=== PATIENT | male | born 1950 | race Caucasian/White ===

== ENCOUNTER 2020-03-11 05:16 | Inpatient (IN) | payer MEDICARE, SELFPAY ==
[2020-03-11] VITALS (12 sets, daily range): BP systolic 134–177; BP diastolic 82–116; PULSE 69–94; RESP 18–20; TEMP 36.4–36.7; O2SAT 96–97; BMI 39.9; BMI 40.6; BMI 40.7
--- NOTE | 2020-03-11 05:18 | EKG12_ITS ---
Test Reason : SOB Blood Pressure : / mmHG Vent. Rate : 092 BPM Atrial Rate : 234 BPM P-R Int : 000 ms QRS Dur : 094 ms QT Int : 388 ms P-R-T Axes : 000 -11 063 degrees QTc Int : 479 ms Atrial fibrillation with premature ventricular or aberrantly conducted complexes Nonspecific T wave abnormality Prolonged QT Abnormal ECG Confirmed by JAYNE LEROY, NELI ([id number]), video tape editor ISRAEL GOMEZ ([id number]) on 03/14/2020 2:46:30 PM Referred By: ANTONIO Confirmed By:DENNIS GODOY MD
--- NOTE | 2020-03-11 05:18 | ED.DCSUM_ITS ---
History of Present Illness Chief Complaint: Anxiety Informant: Patient Onset: Days Context: Gradual Onset Timing: Intermittent Current Severity: Moderate Maximum Severity: Moderate Narrative: The patient is a 69-year-old male with no significant medical history that presents to the emergency department shortness of breath, bilateral shoulder pain, neck pain. Patient states for the past 2 weeks, he has been having these intermittent symptoms. He states that he thought it was secondary to anxiety. He states him time to time, it will feel like he cannot catch his breath. He states tonight, he had tightness in both shoulders and into the back of his neck. He felt mildly nauseated. He did not have any specific chest pain. The patient only takes Tylenol daily as needed. He does not smoke. He denies any history of coronary vascular disease. He states that he talked to his doctor about this earlier in the week who thought that it may be a component of anx iety. He states that he does exert himself, it does seem to make the symptoms worse. Prior similar symptoms: No Recent Illness/Hospitalization: No Past Medical History - Allergies and Home Meds Allergies/Adverse Reactions: Allergies No Known Allergies Allergy (Verified 03/11/20 05:33) Primary Care Physician: Moises Jordan DO [Primary Care Provider] - Prior records reviewed: Yes Past Medical History: None Surgical History: noncontributory Review of Systems General: Denies: Chills, Fever, Sweats Eyes: Denies: Visual changes - bilaterally, Diplopia ENT: Denies: Rhinorrhea, Sore throat Cardiovascular: Reports: Heart racing. Denies: Chest pain, Palpitations Respiratory: Reports: Dyspnea, Dyspnea on exertion. Denies: Cough Gastrointestinal: Denies: Abdominal pain, Nausea, Vomiting, Diarrhea, Melena, Hematochezia Genitourinary: Denies: Dysuria, Hematuria, Frequency Musculoskeletal: Denies: Back pain, Extremity Pain Skin: Denies: Rash, Wounds Neurological: Denies: Headache, Weakness, Numbness Physical Exam Inital Vital Signs reviewed: Yes General: Well nourished, Well developed, No Acute Distress Head: Normocephalic, Atraumatic Eyes: Perrl, EOMI ENT: Moist mucous membranes, No rhinorrhea Neck: Supple, Nontender Cardiovascular: Regular rate, Regular rhythm, No murmurs Respiratory: No distress, CTA bilaterally, Chest nontender Abdomen: Soft, Nontender, Nondistended, Normal bowel sounds Back: Nontender, Normal Inspection Extremities: Nontender, No edema Skin: Normal color, No rash Neurological: Alert, Oriented x3, Cranial nerves II-XII grossly intact, Normal Strength, Normal Sensation Psychological: Normal affect, Normal Mood Diagnostic/Tx/Re-eval Abnormal Lab Results 03/11/20 03/11/20 03/11/20 05:20 05:20 05:20 WBC 6.4 RBC 4.76 Hgb 15.1 Hct 44.1 MCV 92.6 MCH 31.7 MCHC 34.2 RDW Std Deviation 45.0 H RDW Coeff of Bobby 13.2 Plt Count 163 MPV 10.7 Immature Gran % (Auto) 0.200 Neut % (Auto) 46.9 L Lymph % (Auto) 39.5 Chambers % (Auto) 9.7 Eos % (Auto) 3.1 Baso % (Auto) 0.6 Absolute Neuts (auto) 3.0 Absolute Lymphs (auto) 2.52 Nucleated RBC % 0 Sodium 136 Potassium 4.0 Chloride 104 Carbon Dioxide 26.0 Anion Gap 6 BUN 20 H Creatinine 1.17 Estim Creat Clear Calc 59.59 Est GFR (MDRD) Af Amer 79 Est GFR (MDRD) Non-Af 66 BUN/Creatinine Ratio 17.1 Glucose 97 Calcium 8.4 L Magnesium 2.4 Troponin I < 0.015 B-Natriuretic Peptide 333.8 H - Rhythm Strip Rhythm Strip: A-fib Rate: 90 Ectopy: PVC(s) - EKG Initial EKG Interpretation: Atrial Flutter Prior: Changed - Medical Decision Making The patient presents to the emergency department with shortness of breath. There is an exertional component. He also does have some complaints of orthopnea. He has some crackles in his lung bases and mild edema in his lower extremities. EKG was obtained on arrival. It was read as A. fib, however does appear to be atrial flutter with intermittent conduction. Screening labs including cardiac enzymes were negative. Chest x-ray does show enlarged cardiac silhouette with cephalization and evidence of volume overload. The patient has no history of dysrhythmia and now appears to be in congestive heart failure. I do feel that he would benefit from admission for diuresis and an echo. The patient was discussed with cardiology and with the hospitalist. Impression 1. Atrial flutter 2. New onset congestive heart failure ED Disposition - Plan for ED Patient: Referrals: Moises Jordan DO [Primary Care Provider] -
[2020-03-11] MEDS: Aspirin 81 MG TAB.CHEW 324 MG PO (05:29)
[2020-03-11 05:30] LABS: Absolute Lymphocyte Count 2.52 X10^3/uL (0.83-4.51); Basophil# 0.04 X10^3/uL; Basophil% 0.6 % (0-1); Eosinophils% 3.1 % (0-5); Hematocrit 44.1 % (40-54); Hemoglobin 15.1 g/dL (13.0-16.5); Lymphocyte # 2.52 X10^3/ul (4.0); Lymphocyte % 39.5 % (19-41); Mean Corp Hgb Conc 34.2 g/dL (32-36); Mean Corpuscular Hgb 31.7 pg (27.0-32.0); Mean Corpuscular Volume 92.6 fL (80-94); Mean Platelet Vol. 10.7 fl (6.2-12.0); Monocyte# 0.62 X10^3/uL; Monocyte% 9.7 % (0-10); NRBC Flagged by Analyzer 0 % (0-5); Neutrophil # 2.99 X10^3/uL (2.7-7.7); Neutrophil % 46.9 % (47-70); Platelet Count 163 K/mm3 (150-450); RBC Distribution Width CV 13.2 % (11.6-14.6); Red Blood Count 4.76 M/mm3 (4.6-6.2); White Blood Count 6.4 K/mm3 (4.4-11.0)
--- NOTE | 2020-03-11 05:45 | RAD_ITS ---
STUDY: X-RAY CHEST REASON FOR EXAM: Male, 69 years old. SOB X 3 DAYS. CHEST PAIN AND ANXIETY AND RAPID HEART RATE X 2 HRS. PT ALSO STATES PAIN IN BOTH SHOULDERS AND THROUGHOUT NECK. TECHNIQUE: Single AP portable view of the chest. COMPARISON: None. FINDINGS: There is no focal parenchymal abnormality. There is no demonstrated pleural abnormality. There is mild cardiac enlargement. There is vascular prominence. Normal mediastinum and mann. Normal visualized aortic arch and descending thoracic aorta. There are diffuse degenerative changes of the visualized thoracic spine. There is degenerative osteoarthritis of the bilateral shoulders. Obscured soft tissue structures of the upper abdomen. RAD/Chest 1 View (Portable) IMPRESSION: Cardiomegaly. Mild vascular congestion. No focal pneumonia detected. Electronically Signed: Sandra Fuller MD at 7:09 EDT , Service support ,
[2020-03-11 05:47] LABS: Anion Gap 6 (5-15); BNP,B-Type NATRIURETIC PEPTIDE 333.8 pg/mL (0-100); BUN 20 mg/dL (7-18); BUN/Creat Ratio 17.1 RATIO (10-20); Calcium,Total 8.4 mg/dL (8.5-10.1); Chloride 104 mmol/L (98-107); Creatinine, Serum 1.17 mg/dL (0.70-1.30); EST Glomerular Filtration Rate 66 mL/min (>60); Est Glom Filt Rate - Afr Amer 79 mL/min (>60); Estimated Creatinine Clearance 59.59 ml/min; Glucose 97 mg/dL (74-106); Magnesium 2.4 mg/dL (1.6-2.6); Sodium Level 136 mmol/L (136-145)
--- NOTE | 2020-03-11 06:08 | PCM.HP.STD ---
Problem List (1) Heart failure Status: Acute (2) Atrial flutter Status: Acute History of Present Illness Date of Admission: 03/11/20 Chief Complaint: Shortness of breath The patient is a 69 year old M with a significant history of neuropathy; bilateral leg edema; spinal stenosis status post back surgery who presents emergency department with a two-week history of persistent shortness of breath. Associated with symptoms is paroxysmal nocturnal dyspnea, orthopnea and insomnia. Further patient has a palpitations. He called his PCP a day before his presentation. His PCP thought that this may be anxiety. His PCP instructed him that if his symptoms does not go away he should come to the emergency department. On the day of presentation patient had a bilateral shoulder tightness and neck pain that put him to the edge of coming to the emergency department. Reportedly he has been taking acetaminophen and ibuprofen for chronic back pain and for bilateral neuropathy in his legs. On the day of presentation he took acetaminophen and ibuprofen for this new shoulder and neck pain. At emergency department he denied any shoulder or neck pain. He reports a chronic bilateral leg edema which is worse in his left leg done in his right leg. His bilateral lower extremity edema has not changed. Typically he wears a ELAINA hose for his bilateral leg edema. He denies any weight gain within the last 6 months. Past Medical History Medical History: Medical History (Last Updated 03/11/20 @ 07:[address] Wil Donaldson MD) Back pain M54.9 Allergies No Known Allergies Allergy (Verified 03/11/20 05:33) Home Medications: Ambulatory Orders Medication Instructions Recorded Acetaminophen [Tylenol] 650 mg PO DAILY 03/11/20 Ascorbic Acid [Vitamin C] PO DAILY 03/11/20 Beta-Carotene [Beta Carotene] unit PO DAILY 03/11/20 Ergocalciferol [Vitamin D] 5,000 unit PO DAILY 03/11/20 Ibuprofen [Advil] 800 mg PO DAILY 03/11/20 Surgical History: herniorrhaphy, - - Back surgery Smoking Status: Never smoker Alcohol: Occasional - *Family History Maternal History Items: Cancer - His mother had breast cancer Paternal History Items: - - His father is age 93 and is still alive. Review of Systems Constitutional: Denies: Chills, Fever, Weight Change HEENT: Denies: Head Aches, Sinus Congestion, Sinus Drainage Cardiovascular: Reports: Edema, Orthopnea, Palpitations, Paroxysmal Noc. Dyspnea. Denies: Chest Pain Respiratory: Reports: Shortness of breath at rest. Denies: Cough, Sputum production Gastrointestinal: Denies: Abdominal Pain, Nausea, Vomiting Genitourinary: Denies: Dysuria Musculoskeletal: Denies: Joint Pain, Joint Tenderness Skin: Denies: Rash, Wounds Neurological: Denies: Numbness, Tingling, Focal weakness Psychiatric: Reports: Anxiety. Denies: Depression, Homicidal Ideations, Suicidal Ideations Hematologic/ Lymphatic: Denies: Easy Bruising, Easy Bleeding VTE Information - Inpt Only VTE Present on Admission: No VTE Mechan Device Prophylaxis: None VTE Pharm Prophylaxis ordered?: No Reason prophylaxis not ordered:: Treatment Not Indicated - Started on Eliquis for A. fib Patient Problems: Active and Suspected Problems (Last Updated 03/11/20 @ 07:[address] Wil Donaldson MD) Heart failure (Acute) Atrial flutter (Acute) - Physical Exam Vitals/I&O's: Vital Signs Temp Pulse Resp BP Pulse Ox 98.0 F 83 18 171/116 H 97 03/11/20 05:17 03/11/20 05:38 03/11/20 05:38 03/11/20 05:38 03/11/20 05:17 Oxygen Delivery Method Room Air Weight: 122.47 kg Body Mass Index (BMI) 39.9 General: Alert, Oriented x3, Cooperative HEENT: Atraumatic, PERRLA, EOMI, Normocephalic Neck: Supple, No JVD, Negative Carotid Bruits Lungs: Clear to auscultation, Normal air movement Cardiovascular: Normal S1, Normal S2, No murmurs, Irregular Rate Abdomen: Bowel Sounds Present, Soft, Non Tender Extremities: Capillary Refill Less than 3 Seconds, Edema - Mild, bilateral feet Skin: No rashes, No breakdown Musculoskeletal: No Tenderness to Palpation of Joints or Extremities Neurological: Cranial nerves II-XII grossly intact Psych/Mental Status: Normal Affect, Appropriate Laboratory Results 03/11/20 05:20: WBC 6.4, RBC 4.76, Hgb 15.1, Hct 44.1, MCV 92.6, MCH 31.7, MCHC 34.2, RDW Std Deviation 45.0 H, RDW Coeff of Bobby 13.2, Plt Count 163, MPV 10.7, Immature Gran % (Auto) 0.200, Neut % (Auto) 46.9 L, Lymph % (Auto) 39.5, [place] % (Auto) 9.7, Eos % (Auto) 3.1, Baso % (Auto) 0.6, Absolute Neuts (auto) 3.0, Absolute Lymphs (auto) 2.52, Nucleated RBC % 0 03/11/20 05:20: Sodium 136, Potassium 4.0, Chloride 104, Carbon Dioxide 26.0, Anion Gap 6, BUN 20 H, Creatinine 1.17, Estim Creat Clear Calc 59.59, Est GFR (MDRD) Af Amer 79, Est GFR (MDRD) Non-Af 66, BUN/Creatinine Ratio 17.1, Glucose 97, Calcium 8.4 L, Magnesium 2.4, Troponin I < 0.015 03/11/20 05:20: B-Natriuretic Peptide 333.8 H Assessment/Plan All Active Problems (Last Updated 03/11/20 @ 07:[address] Wil Donaldson MD) Heart failure (Acute) Atrial flutter (Acute) The patient is a 69 year old M with a significant history of neuropathy; bilateral leg edema; spinal stenosis status post back surgery who presents emergency department with a two-week history of persistent shortness of breath; paroxysmal nocturnal dyspnea, orthopnea and insomnia. Atrial flutter EKG showed rate controlled atrial flutter. Place on PCU on telemetry Serial cardiac enzymes Obtain echo Emergent department doctor discussed the case with branch sales and service representative telephone messenger and Eliquis was recommended. Eliquis ordered at emergency department and continued. Rate is controlled so no rate control medication prescribed. Of note patient has likely heart failure so no rate control medication at this time. Potassium and magnesium are normal. Chest x-ray Consult cardiology. New onset exacerbation of heart failure Review of emergency department labs showed elevated BNP, 333.8 which is relevant in this patient with BMI of 39.9.. Place on monitored bed on PCU Weight on admission to the floor; and then daily Strict I&O's CXR independently reviewed showed increase cardiac silhouette with cephalization. Received Lasix 40 mg IV at emergency department and continued. Potassium supplementation ordered. Echo ordered to evaluate LVEF and wall motion Monitor electrolytes and renal function Trend blood pressure Titrate diuretics and heart failure/blood pressure medications with blood pressure. Discussed emergent department doctor to give patient lisinopril. Lisinopril continued. Fluid restriction of 1500 mls daily 2 g cardiac diet Chronic back pain/leg pain Acetaminophen continued. Hold home NSAIDs. DVT prophylaxis: Not indicated since patient has been started on Eliquis for A-flutter Inpatient E&M: 22576 Init Hosp L3
[2020-03-11] MEDS: Furosemide 40 MG/4 ML Vial IV (06:28)
[2020-03-11] MEDS: APIXABAN 5 MG TABLET PO ×2 (06:33→16:54)
[2020-03-11] MEDS: Lisinopril 20 MG Tablet PO ×2 (07:02→09:11)
--- NOTE | 2020-03-11 07:49 | ECHOCS_ITS ---
Reason For Study: Afib, Aflutter Procedure This was a 2D Doppler, Color Flow transthoracic echocardiogram. Contrast injection was performed. Exam performed in department. Left Ventricle Normal LV size. The estimated ejection fraction is 50-55 %. Unable to assess diastolic dysfunction. No regional wall motion abnormalities noted. Right Ventricle Normal RV size. Normal systolic function. Atria The left atrium is mildly enlarged. Normal right atrium. No doppler evidence for ASD. Mitral Valve There is mild mitral annular calcification. There is no mitral valve stenosis. Mild (1+) mitral valve insufficiency. Tricuspid Valve There is no tricuspid stenosis. Trivial tricuspid valve insufficiency. Pulmonary artery systolic pressure is 30 mmHg. Aortic Valve Moderate diffuse aortic valve thickening. Moderate aortic stenosis. Moderate (2+) aortic valve insufficiency. Pulmonic Valve There is no pulmonic valvular stenosis. No pulmonic valve insufficiency. Great Vessels Normal aortic root. Pericardium/Pleural No pericardial effusion. Medication Diluted definity 2ml given slow IV push to enhance endocardial definition. MMode/2D Measurements & Calculations LVIDd: 5.6 cm IVSd: 1.2 cm LVOT diam: 2.5 cm LVIDs: 3.9 cm LVPWd: 1.0 cm RVDd: 4.0 cm FS: 30.1 % LVOT area: 4.7 cm2 Ao root diam: 3.2 cm LAV(MOD-bp): 70.7 ml LA A4 area: 24.1 cm2 LAV(MOD-bp) Indexed: 30.1 ml/m2 LAV(MOD-sp2): 69.3 ml LAV(MOD-sp4): 70.4 ml LA dimension(2D): 5.2 cm RA A4 area: 21.4 cm2 Doppler Measurements & Calculations MV E max licha: 65.0 cm/sec Ao V2 max: 293.4 cm/sec AI max licha: 394.7 cm/sec Ao max P.6 mmHg AI max P.9 mmHg Ao V2 mean: 223.1 cm/sec AI dec slope: 185.0 cm/sec2 Ao mean P.5 mmHg AI P1/2t: 624.8 msec Ao V2 VTI: 63.6 cm ALEJANDRO(I,D): 1.6 cm2 ALEJANDRO(V,D): 1.5 cm2 LV V1 max: 94.5 cm/sec SV(LVOT): 103.1 ml PA V2 max: 62.7 cm/sec LV V1 max P.6 mmHg LV V1 mean P.1 mmHg LV V1 mean: 69.7 cm/sec LV V1 VTI: 21.8 cm PI end-d licha: 138.0 cm/sec TR max licha: 260.5 cm/sec TR max P.1 mmHg Interpretation Summary The estimated ejection fraction is 50-55 %. Unable to assess diastolic dysfunction. The left atrium is mildly enlarged. Mild (1+) mitral valve insufficiency. Moderate aortic stenosis. Moderate (2+) aortic valve insufficiency. The study was technically difficult. Contrast injection was performed. Ordering Physician: Wil Donaldson Referring Physician: Moises Jordan Performed By: Christina Porras RDCS, RVT
[2020-03-11 08:32] LABS: Thyroid Stim Hormone (TSH) 4.11 uIU/mL (0.358-3.74)
[2020-03-11] MEDS: 0.9% Saline Lock 10 ML Syringe IV (09:11)
--- NOTE | 2020-03-11 11:16 | CASEMGMT ---
This RN CM to room to complete CM assessment and pt is currrently in the shower. Will attempt again later. SStaten RN CM
--- NOTE | 2020-03-11 12:19 | CON.PCM_ITS ---
Reason for Consult Date of Consultation: 03/11/20 Reason for Consultation: SOB, A fib History of Present Illness: The patient is a 69 year old M with a significant history of neuropathy; bilateral leg edema; spinal stenosis status post back surgery who presents emergency department with a two-week history of persistent shortness of breath. Associated with symptoms is paroxysmal nocturnal dyspnea, orthopnea and insomnia. This morning patient woke up with bilateral shoulder pain and neck pain. There was no clear aggravating or relieving factors. By the time he came to the emergency room the pain had resolved. However because of the shoulder pain he decided to come to the emergency room. Patient states that he has been feeling anxious over the last few days and was wondering if his symptoms could be related to that. He reports a chronic bilateral leg edema which is worse in his left leg done in his right leg. His bilateral lower extremity edema has not changed. Typically he wears a ELAINA hose for his bilateral leg edema. He denies any weight gain within the last 6 months. The emergency room patient was found to have A. fib with controlled ventricular response. This is a new diagnosis for him. Patient's TSH was slightly elevated. 2 sets of troponin have been negative. Review of systems: All systems reviewed. All else is negative except that in the HPI Past Medical History Allergies/Adverse Reactions: Allergies No Known Allergies Allergy (Verified 03/11/20 05:33) Home Medications: Ambulatory Orders Medication Instructions Recorded Acetaminophen [Tylenol] 650 mg PO DAILY 03/11/20 Ascorbic Acid [Vitamin C] PO DAILY 03/11/20 Beta-Carotene [Beta Carotene] unit PO DAILY 03/11/20 Ergocalciferol [Vitamin D] 5,000 unit PO DAILY 03/11/20 Ibuprofen [Advil] 800 mg PO DAILY 03/11/20 Surgical History: herniorrhaphy, - - Back surgery - *Family History Maternal History Items: Cancer - His mother had breast cancer Paternal History Items: - - His father is age 93 and is still alive. Smoking Status: Never smoker Alcohol: Occasional Objective: Vital Signs Temp Pulse Resp BP Pulse Ox 97.5 F L 88 20 H 155/82 H 96 03/11/20 07:30 03/11/20 09:26 03/11/20 09:26 03/11/20 07:30 03/11/20 09:26 Oxygen Delivery Method Room Air Weight: 275 lb 9.245 oz Body Mass Index (BMI) 40.6 Intake and Output for Last 24 Hours 03/09/20 03/10/20 03/11/20 23:59 23:59 23:59 Intake Total 250 / 250 Output Total 1375 / 1375 Balance -1125 / -1125 General: Awake, Alert, Oriented x 3 HEENT: Atraumatic Oral: Moist Mucosa Neck: Supple Lungs: Clear to auscultation Cardiovascular: Irregular Rhythm Abdomen: Soft Extremities: Trace RLE Edema, Trace LLE Edema Skin: No Rashes Neurological: No Focal Motor or Sensory Deficit Psych/Mental Status: Anxious 03/11/20 05:20: WBC 6.4, RBC 4.76, Hgb 15.1, Hct 44.1, MCV 92.6, MCH 31.7, MCHC 34.2, Plt Count 163, MPV 10.7, Immature Gran % (Auto) 0.200, Neut % (Auto) 46.9 L, Lymph % (Auto) 39.5, [place] % (Auto) 9.7, Eos % (Auto) 3.1, Baso % (Auto) 0.6, Absolute Neuts (auto) 3.0, Nucleated RBC % 0 03/11/20 05:20: Sodium 136, Potassium 4.0, Chloride 104, Carbon Dioxide 26.0, Anion Gap 6, BUN 20 H, Creatinine 1.17, Est GFR (MDRD) Af Amer 79, Est GFR (MDRD) Non-Af 66, BUN/Creatinine Ratio 17.1, Glucose 97, Calcium 8.4 L, Magnesium 2.4, Troponin I < 0.015 03/11/20 05:20: B-Natriuretic Peptide 333.8 H 03/11/20 08:36: Troponin I < 0.015 03/11/20 11:28: Troponin I < 0.015 Rhythm: EKG: ECHO: Stress Test: Cardiac Cath: PCI: CT Surgery: Holter monitor: EPS: PPM: CXR: Chest CT Scan: Assessment/Plan 1. Shortness of breath: Patient's BNP was elevated. His blood pressure was also significantly elevated upon arrival. He has noticed slightly worse edema than usual. Appears that patient is in CHF. Agree with starting the patient on Lasix and lisinopril. Patient is worried about being on long-term medications as well. He was wondering if anxiety could have resulted in elevated blood pressure and his symptoms. We will see if his 2D echo reveals LV dysfunction. If the EF is preserved patient's symptoms could be from heart failure with preserved EF and precipitated by uncontrolled hypertension. I will discuss with the primary team regarding treating patient for his anxiety as well as patient prefers this approach. 2. Atrial fibrillation: Patient's heart rate is within normal limits. Agree with starting him on Eliquis.
--- NOTE | 2020-03-11 14:20 | CASEMGMT ---
GAMALIEL GARCIA assessment: Face to Face with patient for initial transition planning/care coordination assessment. GAMALIEL GARCIA introduced self and role at [facility], pt voices understanding and consents to assessment at this time. Pt is sitting up on side of bed in no distress at this time. Pt is A/Ox4 at this time and answers all questions appropriately at this time. Care providers, pharmacy, and demographics verified at this time. Presentation: Pt c/o feeling anxious, SOB, tightness in neck Admitting dx: Aflutter and new onset HF PCP: Moises Jordan Specialists: Pt states no current specialists at this time. [facility]erred [facility]acy: [facility] Insurance: [facility] Prescription Benefit: [employer] Living Will/HPOA: Pt states has LW/HPOA and is aware that they are not on file at [facility] at this time. Pt states his , Tali Sosa, is HPOA. LNOK: Tali Sosa, Living Arrangements: Pt states lives with in 1 story home and states no concerns at home at this time. Pt states is independent with ADL's. Transportation: Pt states drives self and states no transportation concerns at this time. DME/HHC: Pt states no current DME or need of any DME at this time. Pt states no hx of HHC or SNF in the past. Pt states no concerns with going home at time of discharge. Pt states is retired. Pt states does not smoke cigarettes but does have a beer daily M-F. Pt to be sent home on Eliquis at discharge and provided with discount cards/instructions at this time,voices understanding. Pt states no further concerns/needs at this time. CM to follow for any further discharge planning/needs. Advised pt to ask for CM if any further questions/concerns/needs arise, voices understanding. Pt Goal: Home Plan: Home [place] GAMALIEL GARCIA
--- NOTE | 2020-03-11 15:11 | NURSING ---
Read and reviewed SN documentation
--- NOTE | 2020-03-11 15:37 | PCM.DC ---
- Discharge Diagnoses Current Active Problems: Current Active and Chronic Problems (Last Updated 03/11/20 @ 07:[address] Wil Donaldson MD) Heart failure (Acute) Atrial flutter (Acute) You will use the following diet at home:: No restrictions Your food should be the consistency of: Regular Your liquids should be the consistency of: Regular/Thin Discharge Activity: Return to Normal Activity Weight Bearing Status: Full weight bearing Allergies/Adverse Reactions: Allergies No Known Allergies Allergy (Verified 03/11/20 05:33) Medications to take at Discharge Acetaminophen [Tylenol] 650 mg PO DAILY 03/11/20 Apixaban [Eliquis] 5 mg PO 0600,1800 tablet 03/11/20 Ascorbic Acid [Vitamin C] PO DAILY 03/11/20 Beta-Carotene [Beta Carotene] unit PO DAILY 03/11/20 Ergocalciferol [Vitamin D] 5,000 unit PO DAILY 03/11/20 Furosemide [Lasix] 20 mg PO DAILY #30 tab 03/11/20 Lisinopril [Zestril] 20 mg PO DAILY tablet 03/11/20 The following prescriptions were given: Furosemide [Lasix] 20 mg PO DAILY #30 tab Transmission Status: Pending to [facility] Primary Care Physician: Moises Jordan DO [Primary Care Provider] - Please follow up with your Primary Care Physician in: in 10 days Test Results: Test results from this visit will be discussed in further detail at your follow-up appointment, if applicable. Please Follow Up With: Kimmie John MD When: as scheduled
--- NOTE | 2020-03-11 16:50 | NURSING ---
at bedside. Discharge teaching completed with patient and spouse. Questions answered and both voiced understanding of same.
--- NOTE | 2020-03-11 17:16 | PCM.DC.SUM ---
Discharge Date and Diagnosis Date of Admission: 03/11/20 Date of Discharge: 03/11/20 - Primary Discharge Diagnosis Acute Problems: #1 New onset atrial fibrillation-etiology unclear #2 essential hypertension #3 moderate aortic stenosis #4 acute diastolic congestive heart failure-initial visit #5 moderate aortic valve insufficiency #6 degenerative disc disease of the lumbar spine Hospital Course and Treatment Operations: None Procedures: 2-D Echocardiogram Summary of Care Provided: The patient is a 69 year old M was seen in the emergency room at [facility] with a chief complaint of increasing shortness of breath however the past 2 weeks and bilateral shoulder pain neck pain and inability to catch his breath when he lies flat at night. Patient denied any chest pain. Work-up in the emergency room included an EKG which showed what appeared to be atrial flutter at a rate of 90-however cardiology felt that the patient was actually in atrial fibrillation, chest x-ray was obtained which showed pulmonary vascular congestion indicative of congestive heart failure, beta natruretic peptide was elevated at 333. Patient was not hypoxic. Patient was admitted to PCU, his rate control was not an issue and he was given no rate control medication, he was started on blood pressure medications due to high blood pressure in the ER-an HODA inhibitor was started. Patient was also placed on IV Lasix, he was seen in consultation by cardiology and underwent a 2D echocardiogram. 2D echocardiogram showed preserved EF with evidence of moderate aortic stenosis and aortic insufficiency. There was no mitral valve disease. Patient was seen and examined on 03/11/2020: On examination he appeared in good health and spirits. Vital signs as documented. Skin warm and dry and without overt rashes. Neck without JVD, neck was supple, trachea midline, thyroid was normal. Lungs clear bilaterally, normal air movement was noted. Heart exam notable for irregular rhythm, there was a 1/6 systolic murmur noted at the right sternal border, there were no rubs or gallops. Abdomen unremarkable and without evidence of organomegaly, masses, or abdominal aortic enlargement. Bowel sounds are present, abdomen is not distended. Extremities-+1 mm pitting edema was noted over both lower legs, no cyanosis was noted, no clubbing was noted. Neuro: Cranial nerves II through XII are grossly intact, no focal motor deficits were noted, sensation to light touch and pinprick intact, motor exam 5/5 throughout. Psych: Patient is alert and oriented x3, he does not appear anxious or depressed, he does not appear agitated. Patient was discharged to home in stable condition on 03/11/2020, I went over at length his diagnosis and his medical conditions with him in addition I talked to his who was in the room at the time of my discharge, and also talked with his personal friend and Dr. Moises Jordan. Patient will also follow-up with . - Physical Exam Vitals/I&O's: Vital Signs Temp Pulse Resp BP Pulse Ox 97.6 F L 86 18 134/84 H 96 03/11/20 15:43 03/11/20 15:43 03/11/20 15:43 03/11/20 15:43 03/11/20 15:43 Oxygen Delivery Method Room Air Weight: 125 kg Body Mass Index (BMI) 40.6 Intake and Output for Last 24 Hours 03/09/20 03/10/20 03/11/20 23:59 23:59 23:59 Intake Total 250 / 250 Output Total 1375 / 1375 Balance -1125 / -1125 Laboratory Results 03/11/20 05:20: WBC 6.4, RBC 4.76, Hgb 15.1, Hct 44.1, MCV 92.6, MCH 31.7, MCHC 34.2, RDW Std Deviation 45.0 H, RDW Coeff of Bobby 13.2, Plt Count 163, MPV 10.7, Immature Gran % (Auto) 0.200, Neut % (Auto) 46.9 L, Lymph % (Auto) 39.5, Wayne % (Auto) 9.7, Eos % (Auto) 3.1, Baso % (Auto) 0.6, Absolute Neuts (auto) 3.0, Absolute Lymphs (auto) 2.52, Nucleated RBC % 0 03/11/20 05:20: Sodium 136, Potassium 4.0, Chloride 104, Carbon Dioxide 26.0, Anion Gap 6, BUN 20 H, Creatinine 1.17, Estim Creat Clear Calc 59.59, Est GFR (MDRD) Af Amer 79, Est GFR (MDRD) Non-Af 66, BUN/Creatinine Ratio 17.1, Glucose 97, Calcium 8.4 L, Magnesium 2.4, Troponin I < 0.015 03/11/20 05:20: B-Natriuretic Peptide 333.8 H 03/11/20 05:20: TSH 4.11 H 03/11/20 08:36: Troponin I < 0.015 03/11/20 11:28: Troponin I < 0.015 Discharge Activity: Return to Normal Activity Weight Bearing Status: Full weight bearing Home Medications: Medications to take at Discharge Acetaminophen [Tylenol] 650 mg PO DAILY 03/11/20 Apixaban [Eliquis] 5 mg PO 0600,1800 tab 03/11/20 Ascorbic Acid [Vitamin C] PO DAILY 03/11/20 Beta-Carotene [Beta Carotene] unit PO DAILY 03/11/20 Ergocalciferol [Vitamin D] 5,000 unit PO DAILY 03/11/20 Furosemide [Lasix] 20 mg PO DAILY #30 tab 03/11/20 Lisinopril [Zestril] 20 mg PO DAILY tab 03/11/20 cycloBENZAPRine HCl [Flexeril] 5 - 10 mg PO TID PRN PRN #30 tab 03/11/20 Following Prescriptions Were Given to Patient: cycloBENZAPRine HCl [Flexeril] 5 - 10 mg PO TID PRN PRN #30 tab PRN Reason: Muscle Spasm Transmission Status: Received by [facility] Furosemide [Lasix] 20 mg PO DAILY #30 tab Transmission Status: Received by [facility] Primary Care Physician: Moises Jordan DO [Primary Care Provider] - Please follow up with your Primary Care Physician in: in 10 days Please Follow Up With: Kimmie John MD When: as scheduled Please Follow Up With: Moises Jordan DO Disposition: Home Minutes spent on discharge:: 31 Patient Condition:: Stable Medical Necessity - Tobacco Use Smoking Status: Never smoker Meaningful Use Info Meaningful Use Diagnoses (Choose all that apply): CHF - CHF HODA/ARB ordered at discharge?: Yes Documented LVEF (%): 55 Inpatient E&M: 61047 Disch Hosp
== END 2020-03-11 17:06 | disposition home or self-care (01) | DRG 291 ==
LOC: ED 05:49 → PCU 06:30
PROVIDERS: Admitting Provider Hospitalist; Emergency Provider Emergency Medicine; PCP Family Medicine; Visit Provider Internal Medicine
DX: I11.0 Hypertensive heart disease with heart failure (principal); I50.31 Acute diastolic (congestive) heart failure; I48.91 Unspecified atrial fibrillation; I35.2 Nonrheumatic aortic (valve) stenosis with insufficiency; M51.36 Other intervertebral disc degeneration, lumbar region; G62.9 Polyneuropathy, unspecified; M54.9 Dorsalgia, unspecified; G89.29 Other chronic pain; Z79.899 Other long term (current) drug therapy
CPT/HCPCS: 36415; 71045; 80048; 83735; 83880; 84443; 84484; 85025; 93005; 93306; 99285; Q9957; A4216; C8929; J1940

== ENCOUNTER 2023-12-27 04:14 | Emergency (ER) | payer MEDICARE, SELFPAY ==
[2023-12-27] VITALS (13 sets, daily range): BP systolic 114–140; BP diastolic 61–81; PULSE 60–78; RESP 12–19; TEMP 36.6–36.8; O2SAT 81–97; BMI 41.8
--- NOTE | 2023-12-27 04:41 | CT_ITS ---
EXAM: CT HEAD WITHOUT INTRAVENOUS CONTRAST CLINICAL INDICATION: head trauma, fall due to vertigo TECHNIQUE: Multiple axial images were obtained of the head without intravenous contrast. This CT exam was performed using one or more of the following dose reduction techniques: automated exposure control, adjustment of the mA and/or kV according to patient size, and/or use of iterative reconstruction technique. RADIATION DOSE: CTDIvol = 44.99 mGy, DLP = 829.85 mGy-cm COMPARISON: No relevant prior studies available. FINDINGS: BRAIN AND EXTRA-AXIAL SPACES: Unremarkable. No intra- or extra-axial hemorrhage. No evidence of acute infarct. No intracranial mass or mass effect. There is preservation of the grewal/white matter interface. Posterior fossa structures are unremarkable. Ventricles are appropriate for age. No hydrocephalus. Basal cisterns are patent. BONES/JOINTS: Unremarkable. No discrete lytic or blastic abnormalities. SINUSES: Unremarkable as visualized. Clear. MASTOID AIR CELLS: Unremarkable. Clear. ORBITS: Visualized globes, extraocular muscles, optic nerves and retrobulbar fat appear unremarkable. CT/Brain/Head without Contrast IMPRESSION: Negative head/brain CT without intravenous contrast. Electronically Signed: Brenden Power MD at 6:11 EDT ,
--- NOTE | 2023-12-27 04:42 | EKG12_ITS ---
Test Reason : SYNCOPE Blood Pressure : / mmHG Vent. Rate : 066 BPM Atrial Rate : 000 BPM P-R Int : 000 ms QRS Dur : 108 ms QT Int : 466 ms P-R-T Axes : 000 -01 -06 degrees QTc Int : 488 ms Atrial fibrillation with frequent ventricular-paced complexes Prolonged QT Abnormal ECG Confirmed by GLENNY LEROY, KATIE ([id number]), technical writer and editor ERNST RENNER ([id number]) on 12/30/2023 11:28:21 AM Referred By: PRICILLA Confirmed By:KATIE MURRIETA MD
--- NOTE | 2023-12-27 04:44 | EDS_ITS ---
HPI HPI - Fall History of Present Illness Chief Complaint: Fall Informant: patient, family and EMS Narrative Narrative: Patient presents with a fall. Initially, EMS brings him in for syncope, the patient states he did not pass out or lose consciousness. He got up out of bed in the middle of the night to use the bathroom and before he got to the bathroom he states he got dizzy and his legs seem like they give out and it all happened very quick but he collapsed, hitting his head on something on the wall maybe a shelf, on the way to the floor. No other injury. He hit his forehead. He states while on the floor he crawled to his to get help. He felt too weak to get up. He remembers being on the floor and turning his head and feeling like things were spinning. When asked if that was the same sensation he had before he fell, he states he does not know. He states he had vertigo 1 other time but usually does not have that. He felt nauseated on the way in via EMS, who did not try to get him to stand, and they gave him some Zofran and IV fluids. He is feeling better now that he is lying here in the ED. He denies any other prodromal symptoms such as chest discomfort, dyspnea, palpitations, severe headache. He has a history of A-fib and congestive heart failure, he is on apixaban. Family states before EMS arrived, they put a pulse ox on his finger, it showed his pulse ox was good but his heart rate was in the 40s. 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 [facility] Medical History Congestive heart failure (CHF) Peripheral neuropathy Atrial fibrillation Back pain Home Medications ?Medication ?Instructions ?Recorded ?Last Taken ?Type acetaminophen 325 mg tablet 650 mg PO Q4H PRN fever or pain 03/11/20 Unknown History apixaban 5 mg tablet 5 mg PO 0600,1800 03/11/20 Unknown Rx ascorbic acid (vitamin C) 1,000 mg 1,000 mg PO DAILY 03/11/20 Unknown History tablet cyclobenzaprine 10 mg tablet 5 - 10 mg (0.5 - 1 x 10 mg) PO TID 03/11/20 Unknown Rx PRN PRN Muscle Spasm #30 tabs furosemide 40 mg tablet 40 mg PO BID 12/27/23 Unknown History meclizine 25 mg tablet 25 mg PO Q8H PRN PRN Dizziness #20 12/27/23 Unknown Rx tabs potassium chloride 20 mEq 20 meq PO DAILY 12/27/23 Unknown History tablet,extended release(part/cryst) Allergy/AdvReac Type Severity Reaction Status Date / Time No Known Allergies Allergy Verified 12/27/23 04:21 Surgical History (Updated 12/27/23 @ 04:45 by Juani Hernandez) Hx of aortic valve replacement Social History Smoking Status: Never smoker ROS ROS ED Constitutional Constitutional ED: Denies chills or fever(s) Eyes Eyes: Denies change in vision or diplopia ENT ENT ED: Reports other Details: Dizziness see HPI ; Denies ear pain, rhinorrhea, sore throat or tinnitus Cardiovascular Cardiovascular: Denies chest pain, palpitations or syncope Respiratory/Chest Respiratory/Chest: Denies cough or dyspnea Gastrointestinal Gastrointestinal: Reports nausea; Denies abdominal pain, diarrhea or vomiting Genitourinary Genitourinary ED: Denies dysuria or hematuria Musculoskeletal Musculoskeletal: Denies back pain or neck pain Integumentary Denies abscess or rash Neurologic Neurologic: Reports headache(s); Denies paresthesias or weakness Psychiatric Psychiatric: Denies suicidal thoughts EXAM Physical Exam Const Vital Signs: 12/27/23 04:15 12/27/23 04:21 12/27/23 04:46 Temperature 98.2 F Temperature Source Oral Pulse Rate 62 Pulse Rate [Lying] Pulse Rate [Sitting (for 1 minute prior to obtaining)] Respiratory Rate 16 Respiratory Effort Normal Non-Labored Blood Pressure 133/65 H Blood Pressure [Lying] Blood Pressure [Sitting (for 1 minute prior to obtaining)] Blood Pressure Mean 87 Blood Pressure Mean [Lying] Blood Pressure Mean [Sitting (for 1 minute prior to obtaining)] Pulse Ox 94 91 Oxygen Delivery Method Room Air Room Air Room Air Oxygen Flow Rate (L/min) 93 12/27/23 04:56 12/27/23 04:59 12/27/23 05:07 Temperature Temperature Source Pulse Rate Pulse Rate [Lying] 60 Pulse Rate [Sitting (for 1 minute prior to obtaining)] 70 Respiratory Rate Respiratory Effort Blood Pressure Blood Pressure [Lying] 123/62 H Blood Pressure [Sitting (for 1 minute prior to obtaining)] 140/81 H Blood Pressure Mean Blood Pressure Mean [Lying] 82 Blood Pressure Mean [Sitting (for 1 minute prior to obtaining)] 100 Pulse Ox 85 96 Oxygen Delivery Method Room Air Nasal Cannula Oxygen Flow Rate (L/min) 2 12/27/23 05:14 12/27/23 06:00 12/27/23 06:32 Temperature Temperature Source Pulse Rate 63 60 Pulse Rate [Lying] Pulse Rate [Sitting (for 1 minute prior to obtaining)] Respiratory Rate 14 12 Respiratory Effort Blood Pressure 126/66 H 118/68 Blood Pressure [Lying] Blood Pressure [Sitting (for 1 minute prior to obtaining)] Blood Pressure Mean 86 84 Blood Pressure Mean [Lying] Blood Pressure Mean [Sitting (for 1 minute prior to obtaining)] Pulse Ox 95 94 81 Oxygen Delivery Method Room Air Room Air Room Air Oxygen Flow Rate (L/min) 12/27/23 06:36 12/27/23 07:00 12/27/23 08:00 Temperature Temperature Source Pulse Rate 60 68 Pulse Rate [Lying] Pulse Rate [Sitting (for 1 minute prior to obtaining)] Respiratory Rate 18 17 Respiratory Effort Blood Pressure 121/67 H 114/61 Blood Pressure [Lying] Blood Pressure [Sitting (for 1 minute prior to obtaining)] Blood Pressure Mean 85 78 Blood Pressure Mean [Lying] Blood Pressure Mean [Sitting (for 1 minute prior to obtaining)] Pulse Ox 94 94 97 Oxygen Delivery Method Nasal Cannula Nasal Cannula Nasal Cannula Oxygen Flow Rate (L/min) 2 2 12/27/23 08:39 Temperature 97.8 F Temperature Source Pulse Rate 78 Pulse Rate [Lying] Pulse Rate [Sitting (for 1 minute prior to obtaining)] Respiratory Rate 19 H Respiratory Effort Blood Pressure 114/61 Blood Pressure [Lying] Blood Pressure [Sitting (for 1 minute prior to obtaining)] Blood Pressure Mean 78 Blood Pressure Mean [Lying] Blood Pressure Mean [Sitting (for 1 minute prior to obtaining)] Pulse Ox 95 Oxygen Delivery Method Oxygen Flow Rate (L/min) Positive well nourished and well developed General Appearance ED: well developed and NAD HEENT Reports moist mucous membranes HEENT Narrative: Forehead abrasions no other signs of trauma. No crepitus or depression or h ematomas. normocephalic Eyes PERRL and EOMs intact bilaterally Neck full ROM and supple Neck Narrative: No JVD Resp normal respiratory effort and clear to auscultation bilaterally Cardio no murmurs Rhythm: abnormal rhythm irregularly irregular GI non-tender and non-distended Auscultation: normoactive bowel sounds Palpation: soft Back/Spine no CVA tenderness General Back: other FROM Extremity normal to inspection Extremity Narrative: Dark discoloration both lower legs worse on the left consistent with stasis dermatitis possibly. Nontender. General Extremety ED: Yes edema; Negative for pulses abnormal or tenderness General Extremity: edema bilateral lower extremity Details: trace; Negative for pulses abnormal Neuro oriented x3, CN's II-XII intact bilaterally and no sensory deficits noted Sensorium / Orientation: awake and alert Motor Exam: strength 5/5 throughout Psych mental status grossly normal and thought process normal Skin no wounds Skin Narrative: Few superficial abrasions without tenderness forehead. No other signs of injury or rashes. MDM MDM MDM Narrative Medical decision making narrative: Patient has a pacemaker. At this time he is intermittently pacing with the underlying rhythm being A-fib. Electrically he is in the 60s, and his pulse ox is matching the 60s. Patient is having a difficult time describing his symptoms, making it challenging to discern whether he is having pre-syncope or disequilibrium. I suspect it is the latter. We did orthostatics and they were negative, but he felt like things were moving and very uncomfortable and nauseated as he sat up to the side of the bed, and wanted to lay back down immediately. His natalia hole to the left was abnormal, causing nystagmus and reproducing his symptoms of spinning/dysequilibrium, the same symptoms that he had when he was sitting on the side of the bed. VS remain normal is not hypertensive to suggest central etiology, and his dysequilibrium is intermittent. If he is lying still, he is asymptomatic. Cardiac workup is negative, including sequential troponin measurements, and his BNP, which is just barely elevated, which is within normal limits for someone in their 70s. While waiting for the work up, he was treated with oral meclizine and IV Reglan. On reevaluation, he is able to get out of bed and walk down the mota with a walker without ataxia and minimal symptoms of physical dysequilibrium. Given all of this, reassured, and gave him a prescription for meclizine. I additionally offered Valium, but he declined, and recommend outpatient follow up with otolaryngology if symptoms Persist for a week or longer. He and significant other comfortable with that plan. Lab Data Attestation: I reviewed the patient's lab results. Labs: Laboratory Results - last 24 hr 12/27/23 12/27/23 04:48 06:55 WBC 6.4 RBC 4.51 L Hgb 14.0 Hct 40.7 MCV 90.2 MCH 31.0 MCHC 34.4 RDW Std Deviation 42.9 RDW Coeff of Bobby 13.0 Plt Count 126 L MPV 10.1 Immature Gran % (Auto) 0.500 Neut % (Auto) 59.1 Lymph % (Auto) 30.3 Geary % (Auto) 7.3 Eos % (Auto) 2.2 Baso % (Auto) 0.6 Absolute Neuts (auto) 3.8 Absolute Lymphs (auto) 1.95 Nucleated RBC % 0 Sodium 140 Potassium 3.1 L Chloride 108 H Carbon Dioxide 23.0 Anion Gap 9 BUN 27 H Creatinine 1.04 Estim Creat Clear Calc 84.02 Est GFR (MDRD) Af Amer 90 Est GFR (MDRD) Non-Af 74 BUN/Creatinine Ratio 26.0 H Glucose 140 H Calcium 8.2 L Troponin I High Sens 14 12 B-Natriuretic Peptide 153.8 H Radiography Diagnostic Testing: Clinical Impression(s) from Imaging Studies Brain CT 12/27/23 04:41 IMPRESSION: Negative head/brain CT without intravenous contrast. Electronically Signed: Brenden Power MD at 6:11 EDT , Rhythm Strip Rhythm Strip: A-fib Rate: 65 Ectopy: None (but intermittent pacing present, mimicking PVCs) EKG Initial EKG: Attestation: I personally reviewed and interpreted this EKG as follows: Interpretation: No Acute Injury Pattern and Atrial Fibrillation (with intermittent ventricular pacing) Prior EKG tracings: available for review Prior: Unchanged Discharge Plan Triage Chief Complaint: Fall ED Provider: Eleuterio Khan Dx/Rx/DC Orders Clinical Impression: Peripheral vertigo, Closed head injury without concussion, Chronic a-fib Instructions: ED Vertigo, Unspecified Prescriptions: New meclizine 25 mg tablet 25 mg PO Q8H PRN PRN (Reason: Dizziness) Qty: 20 0RF No Action ascorbic acid (vitamin C) 1,000 MG tablet 1,000 mg PO DAILY acetaminophen 325 MG tablet 650 mg PO Q4H PRN (Reason: fever or pain) apixaban 5 MG tablet 5 mg PO 0600,1800 0RF cyclobenzaprine 10 MG tablet 5 - 10 mg PO TID PRN PRN (Reason: Muscle Spasm) Qty: 30 0RF furosemide 40 mg tablet 40 mg PO BID potassium chloride 20 mEq tablet,ER particles/crystals 20 meq PO DAILY Primary Care Provider: Moises Jordan Referrals: Selvin Cordoba MD [Med Staff - Active Staff] - 1 Week if not improving Moises Jordan DO [Primary Care Provider] - Print Language: Dutch Disposition Disposition: Home, Self Care Discharge Date/Time: 12/27/23 08:53
[2023-12-27] MEDS: Aspirin 81 MG TAB.CHEW 324 MG PO (04:55)
[2023-12-27 04:57] LABS: Absolute Lymphocyte Count 1.95 X10^3/uL (0.83-4.51); Absolute Neutrophil Count 3.8 X10^3/uL (2.0-7.7); Basophil# 0.04 X10^3/uL; Basophil% 0.6 % (0-1); Eosinophil# 0.14 X10^3/uL; Eosinophils% 2.2 % (0-5); Hematocrit 40.7 % (40-54); Lymphocyte # 1.95 X10^3/ul (0.83-4.51); Lymphocyte % 30.3 % (19-41); Mean Corp Hgb Conc 34.4 g/dL (32-36); Mean Corpuscular Volume 90.2 fL (80-94); Mean Platelet Vol. 10.1 fl (6.2-12.0); Monocyte# 0.47 X10^3/uL; Monocyte% 7.3 % (0-10); NRBC Flagged by Analyzer 0 % (0-5); Neutrophil # 3.81 X10^3/uL (2.7-7.7); Neutrophil % 59.1 % (47-70); Platelet Count 126 K/mm3 (150-450); RBC Distribution Width SD 42.9 fl (35.1-43.9); Red Blood Count 4.51 M/mm3 (4.6-6.2); White Blood Count 6.4 K/mm3 (4.4-11.0)
[2023-12-27 05:13] LABS: Anion Gap 9 (5-15); BUN 27 mg/dL (7-18); Calcium,Total 8.2 mg/dL (8.5-10.1); Chloride 108 mmol/L (98-107); Creatinine, Serum 1.04 mg/dL (0.70-1.30); EST Glomerular Filtration Rate 74 mL/min (>60); Est Glom Filt Rate - Afr Amer 90 mL/min (>60); Estimated Creatinine Clearance 84.02 ml/min; Glucose 140 mg/dL (74-106); Potassium 3.1 mmol/L (3.5-5.1); Sodium Level 140 mmol/L (136-145); Troponin-I HS (w/2H Reflex) 14 pg/mL (3.0-78.0)
[2023-12-27 05:14] LABS: BNP,B-Type NATRIURETIC PEPTIDE 153.8 pg/mL (0-100)
[2023-12-27] MEDS: Meclizine HCl 25 MG Tablet PO (05:48)
[2023-12-27] MEDS: Metoclopramide 10 MG/2 ML Vial 2.5 MG IV (05:52)
[2023-12-27 06:52] LABS: Reflex Troponin-HS? (from REC) Y
[2023-12-27 07:20] LABS: Troponin-I HS 12 pg/mL (3.0-78.0)
== END 2023-12-27 08:53 | disposition home or self-care (01) ==
PROVIDERS: Emergency Provider Emergency Medicine; PCP Family Medicine; Visit Provider Emergency Medicine
DX: S00.81XA Abrasion of other part of head, initial encounter (principal); I50.9 Heart failure, unspecified; I48.20 Chronic atrial fibrillation, unspecified; W01.198A Fall on same level from slipping, tripping and stumbling with subsequent striking against other object, initial encounter; Y93.89 Activity, other specified; H81.392 Other peripheral vertigo, left ear; Z95.0 Presence of cardiac pacemaker; Z79.01 Long term (current) use of anticoagulants; Z79.899 Other long term (current) drug therapy
CPT/HCPCS: 70450; 80048; 83880; 84484; 85025; 93005; 96374; 99285; A4216